=== PATIENT | male | born 1985 | race Caucasian/White ===

== ENCOUNTER → 2022-10-31 11:56 | Outpatient (BNVA) | payer MEDICAID, SELFPAY | PROVIDERS: PCP Nurse Practitioner Family; Visit Provider Nurse Practitioner Family | DX: F90.9 Attention-deficit hyperactivity disorder, unspecified type (principal); R48.0 Dyslexia and alexia; Z13.220 Encounter for screening for lipoid disorders; Z76.89 Persons encountering health services in other specified circumstances | CPT/HCPCS: 80053; 80061 ==